=== PATIENT | male | born 1995 | race Caucasian/White ===

== ENCOUNTER → 2023-08-08 | Outpatient (CLI) | payer OTHER | LOC: SLEEPLAB 17:00 | PROVIDERS: ATTEND Nurse Practitioner Family | DX: G47.33 Obstructive sleep apnea (adult) (pediatric) (principal); K21.9 Gastro-esophageal reflux disease without esophagitis; F41.8 Other specified anxiety disorders; G47.00 Insomnia, unspecified; R06.83 Snoring; R40.0 Somnolence; R53.83 Other fatigue | CPT/HCPCS: 95810 ==